=== PATIENT | female | born 1980 | race Caucasian/White ===

== ENCOUNTER 2023-10-02 14:01 | Emergency (ER) | payer OTHER, MEDICARE, SELFPAY ==
[2023-10-02 14:09] VITALS: BP 92/64
--- NOTE | 2023-10-02 15:26 | EDRN ---
Rod IVY in room w/pt. Pt had COVID and Flu tests done at this time.
--- NOTE | 2023-10-02 15:35 | ED.GENMED ---
History of Present Illness
General
Chief Complaint: Cold/Flu/URI Symptoms
Time Seen by Provider: 10/02/23 15:05
Travel History
Have you had any contact with someone who has COVID-19?: No
Do you have any symptoms of coronavirus? Fever > 100 degrees, chills, cough, shortness of breath, sore throat, loss of taste or smell, muscle aches, or headache?: No
History of Present Illness
History of Present Illness:
43-year-old female with history of tobacco abuse presents to the emergency for evaluation of persistent cough shortness of breath for the past week. States it began after working on completing a anti-inflammatory and pain exposed to several family
members with flulike symptoms. She does note blood-tinged mucus over the past 2 to 3 days. No associated fever but does have chills. No chest pain or leg swelling. Tolerated daughter did have similar symptoms earlier this week but seems to have
improved
Past History
Past History
ED Past Medical History: Asthma, Seizures and Psychiatric (Bipolar Disorder PTSD)
ED Past Surgical History: None
Patient has exhibited threatening behavior?: No
Social History
Tobacco: Smoker
Alcohol: Occasional
Drug: None
Personal: Single
Living: with family
Review of Systems
Review of Systems
Allergies reviewed?: Yes
All Other Systems: ROS reviewed and negative except as documented in HPI and ROS
Phy Exam
Physical Exam
Physical Exam:
GEN: Well appearing, NAD, WDWN
Eyes: PERRLA, EOMs intact, no scleral icterus
HENT: NCAT, oral mucosa moist
Lungs: CTAB, no wheezes, rales, rhonchi, normal chest wall excursion
Cardiac: RRR
Abdomen: S, NT, ND, NABS, no masses or hepatosplenomegaly
Neuro: AO x 3, no focal deficits to BUE/BLE, normal sensation throughout
MSK: No gross deformity or ecchymosis.
Skin: No rashes, petechiae. Normal color, no pallor or jaundice.
Psych: Calm, cooperative, proper hygiene
Course
Orders/Labs/Results
Orders:
Orders
10/02/23 15:24
COVID-19 Antigen Urgent
Source: Nasal Swab
Influenza A+B Rapid Molecular Urgent
MARCIN Source: Nasal Swab
Specimen Description:
10/02/23 15:29
CR Chest - 2 Views Urgent
Comment:
Reason For Exam: cough/hemoptysis
Vital Signs
Initial and Last Documented VS:
Initial Vital Signs
Temp Pulse Resp BP Pulse Ox
98.1 F 70 18 92/64 98
10/02/23 14:09 10/02/23 14:09 10/02/23 14:09 10/02/23 14:09 10/02/23 14:09
Last Documented Vital Signs
Temp Pulse Resp BP Pulse Ox
98.1 F 66 16 100/87 96
10/02/23 14:09 10/02/23 15:38 10/02/23 15:38 10/02/23 15:38 10/02/23 15:38
MDM/Problems Addressed
MDM/Problems Addressed:
Patient's physical exam is benign. Chest x-ray was obtained to evaluate for infiltrate given her blood-tinged sputum, this was grossly unremarkable. COVID and flu test were negative. Self-limited viral syndrome, supportive care discussed
*Critical Care Note
Total Time (30-74mins, 75-104mins- exclusive of procedures): Not Applicable
ED Attending Note
-
Portions of this chart may have been created with voice recognition software.� Occasional wrong word or��sound alike� substitutions may have occurred due to the inherent limitations of voice recognition software.
Discharge Plan
Departure
Patient Disposition: Home (Routine Discharge)
Date of Disposition: 10/02/23
Time of Disposition: 16:23
Patient with high blood pressure during this ER visit?: No
Discharge Problem:
Acute bronchitis
Instructions: Acute Bronchitis, Adult (DC)
Prescriptions:
New
albuterol sulfate [ProAir HFA] 90 mcg/actuation HFA aerosol inhaler
1 puff inhalation Q4HPRN PRN (Reason: shortness of breath) Qty: 6.7 0RF
No Action
Proair Digihaler 90 mcg/actuation aero powdr breath act w/sensor
1 inh inhalation Q4H Qty: 1 0RF
prednisone 20 mg tablet
40 mg PO DAILY Qty: 8 0RF
albuterol sulfate 2.5 mg /3 mL (0.083 %) solution for nebulization
2.5 mg inhalation Q4H Qty: 75 0RF
Referrals:
UNKNOWN - PT DOES,NOT KNOW [Family Provider] -
Interventions
Interventions:
*Risk Screen - Suicide Last Done: 10/02/23 15:32
*General Assessment Last Done: 10/02/23 15:32
*Neglect/Abuse Screening Last Done: 10/02/23 15:32
ED- Fall Risk Assessment Last Done: 10/02/23 15:32
*ED COVID-19 Vaccine History Last Done: 10/02/23 15:32
*Nursing Disposition Last Done: 10/02/23 16:15
ED- Pulmonary Assessment Last Done: 10/02/23 15:40
Discharge Date and Time
Discharge Date/Time: 10/02/23 16:15
[2023-10-02 15:38] VITALS: BP 100/87
[2023-10-02 16:34] LABS: COVID-19 Antigen Negative (Negative)
== END 2023-10-02 16:15 | disposition home or self-care (01) ==
LOC: EMR 14:01
PROVIDERS: Physician Assistant; EMERGENCY PHYSICIAN Emergency Medicine
DX: J20.9 Acute bronchitis, unspecified (principal); Z11.52 Encounter for screening for COVID-19; F31.9 Bipolar disorder, unspecified; J45.909 Unspecified asthma, uncomplicated; F43.10 Post-traumatic stress disorder, unspecified; R56.9 Unspecified convulsions; Z88.6 Allergy status to analgesic agent; Z88.8 Allergy status to other drugs, medicaments and biological substances
CPT/HCPCS: 99283; 71046; 87502; 87811

== ENCOUNTER 2023-11-21 17:05 | Emergency (ER) | payer OTHER, MEDICARE, SELFPAY ==
[2023-11-21 17:07] VITALS: BP 116/81; BMI 17.7
[2023-11-21 17:29] LABS: % Basophils 0.3 % (0-2); % Immature Granulocytes 0.3 % (0-0.5); % Lymphocytes 18.6 % (20.5-51.1); % Monocytes 9.1 % (1.7-9.3); % Neutrophils 71.7 % (42.2-75.2); Absolute Lymphocytes 2.2 10^3/uL (1.2-3.4); Absolute Monocytes 1.1 10^3/uL (0.1-0.6); Absolute Neutrophils 8.5 10^3/uL (1.4-6.5); Hematocrit 38.3 % (37.0-47.0); Hemoglobin 13.4 g/dL (12.0-16.0); Mean Corpuscular Hgb 31.6 pg (27.0-31.0); Mean Corpuscular Volume 90.3 fL (81.0-99.0); Mean Platelet Volume 9.9 fL (7.4-10.4); Nucleated Red Blood Cells % 0 %; Platelet Count 213 10^3/uL (130-400); Red Blood Cell Count 4.24 10^6/uL (4.20-5.40); Red Cell Dist. Width 14.1 % (11.5-14.5); White Blood Cell Count 11.8 10^3/uL (4.8-10.8)
[2023-11-21 17:39] LABS: ALT (SGPT) 18 U/L (0-35); AST (SGOT) 24 U/L (14-36); Albumin 4.1 g/dl (3.5-5.0); Alkaline Phosphatase 113 U/L (38-126); Blood Urea Nitrogen 19 mg/dl (7-17); Calcium 8.7 mg/dl (8.4-10.2); Carbon Dioxide 25 mmol/L (22-30); Chloride 104 mmol/L (98-107); Estimated Creatinine Clearance 64 ml/min; Glucose 95 mg/dl (70-99); Sodium 135 mmol/L (135-145); Total Bilirubin 0.4 mg/dl (0.2-1.3); Total Protein 7.1 g/dl (6.3-8.2); eGFR > 60.00
[2023-11-21 17:50] LABS: Troponin I < 0.012 ng/ml
--- NOTE | 2023-11-21 20:00 | ED.GENMED ---
History of Present Illness
General
Chief Complaint: Chest Pain
Source: patient
Exam Limitations: none
Time Seen by Provider: 11/21/23 19:41
Travel History
Have you had any contact with someone who has COVID-19?: No
Do you have any symptoms of coronavirus? Fever > 100 degrees, chills, cough, shortness of breath, sore throat, loss of taste or smell, muscle aches, or headache?: No
History of Present Illness
History of Present Illness:
This is a 43 year old female that comes in with c/o right sided chest pain. States that she was outside with her kids and they were playing. State that all of a sudden she started with this sharp right sided chest pain, that went into her back and
down her arm. States that she took 2 Aleve and went to . States that she was sent for further evaluation. States that they called the ambulance and she was given 2 baby aspirin. States that she also became sweaty. States that she felt SOB with the
pain. Patient states that the pain is better now. Denies any fever, chills, abd pain, nausea, vomiting, diarrhea, headache, dizziness, urinary burning.
Past History
Past History
ED Past Medical History: Asthma, Seizures, Psychiatric (Bipolar Disorder, PTSD) and Other (endometriosis, )
ED Past Surgical History: ( X 3) and Gynecological (Tubal)
Patient has exhibited threatening behavior?: No
Social History
Tobacco: Smoker
Alcohol: None
Drug: None and Marijuana
Personal:
Living: with family
Review of Systems
Review of Systems
All Other Systems: ROS reviewed and negative except as documented in HPI and ROS
Constitutional: Reports no symptoms; Denies fever or chills
EENT: Reports no symptoms
Respiratory: Reports trouble breathing; Denies cough
Cardiac: Reports chest pain
ABD/GI: Reports no symptoms; Denies abdominal pain, nausea, vomiting or diarrhea
: Reports no symptoms; Denies dysuria, frequency or urgency
Musculoskeletal: Reports no symptoms
Skin: Reports no symptoms
Neurological: Reports no symptoms; Denies dizzy or headache
Psychiatric: Reports no symptoms
Phy Exam
General Physical Exam
General Presentation: well appearing and no apparent distress
General age: appears stated age
General Skin: warm and dry
General Habitus: normal
General Mental: alert
General Hydration: appears well hydrated
ENT Exam
ENT Exam: TM's normal, pharynx normal and neck supple
Eye Exam
Eye Exam: EOMI
Cardiovascular Exam
Cardiovascular Exam: regular rate/rhythm, no edema, no murmur and normal peripheral pulses
Pulmonary Exam
Pulmonary Exam: lungs clear, no respiratory distress, no rales, chest non tender, no crackles, no rhonchi, no wheezing and no cough
Gastrointestinal Exam
Gastrointestinal Exam: normal bowel sounds, non tender, soft, no organomegaly, no pulsatile mass and non distended
Musculoskeletal Exam
Musculoskeletal Exam: full ROM and no edema
Skin Exam
Skin Exam: normal color, warm/dry, no rash and no petechia
Psychiatric Exam
Psychiatric Exam: normal mood/affect
Scores
Heart Score for Chest Pain Patients
STEMI patient?: No
History: Slightly or Non-Suspicious
ECG: Normal
Age: </= 45 years
Risk Factors: 1 or 2 Risk Factors
Troponin: </= Normal Limit
Heart Score for Chest Pain Patients: 1
Heart Score Risk: 2.5% MACE over next 6 weeks
Course
Orders/Labs/Results
Orders:
Orders
11/21/23 17:06
EKG [Electrocardiogram (*1)] Urgent
Reason for Study: Chest Pain
11/21/23 17:07
EKG- Treatment ONCE
11/21/23 17:19
Complete Blood Count/With Diff Urgent
Comprehensive Metabolic Panel Urgent
Troponin I Urgent
11/21/23 19:53
EKG- Treatment ONCE
11/21/23 20:01
CR Chest - 2 Views Urgent
Comment:
Reason For Exam: chest pain
11/21/23 20:20
Electrocardiogram (*1) Urgent
Reason for Study: Chest Pain
Other Reason for Exam: Repeat with Troponin
11/21/23 20:30
D-Dimer Urgent
Troponin I Urgent
Abnormal Lab Results
11/21/23
17:19
WBC 11.8 H 10^3/uL
(4.8-10.8)
MCH 31.6 H pg
(27.0-31.0)
Absolute Neuts (auto) 8.5 H 10^3/uL
(1.4-6.5)
Absolute Monos (auto) 1.1 H 10^3/uL
(0.1-0.6)
Lymphocytes % 18.6 L %
(20.5-51.1)
BUN 19 H mg/dl
(7-17)
11/21/23 17:19
11/21/23 17:19
WBC very slightly elevated. Dehydration. Troponin <0.012
D-dimer 0.31, Second Tropnin <0.012
Vital Signs
Initial and Last Documented VS:
Initial Vital Signs
Temp Pulse Resp BP Pulse Ox
98.5 F 73 16 116/81 99
11/21/23 17:07 11/21/23 17:07 11/21/23 17:07 11/21/23 17:07 11/21/23 17:07
Last Documented Vital Signs
Temp Pulse Resp BP Pulse Ox
98.5 F 60 20 116/81 98
11/21/23 17:07 11/21/23 21:15 11/21/23 21:15 11/21/23 17:07 11/21/23 21:15
MDM/Problems Addressed
Differential Diagnosis Includes:
Musculoskeletal pain. Coronary artery syndrme
MDM/Problems Addressed:
This is a 43 year old female that comes in with c/o right sided chest pain that went into her back and down her arm. State that she took Aleve an went to . Patient was sent to the ER for further evaluation.
Will check labs. Get Chest x-ray.
Repeat EG: rate 55, Sinus Bradycardia, Normal axis. Normal QRS, Negative for ischemia. Checked by Dr. Zepeda
Back into see patient. Explained that her ECG and both Troponin are normal. Chest x-ray is normal along with her D-dimer. Explained that this may just be musculoskeletal pain. Patient can use Ibuprofen for pain. Follow up with the family doctor for
recheck. Return with any concerns.
Chronic conditions affecting care:
Na
Acute Exacerbation and/or Progression of Chronic Illness:
NA
*Radiology
Radiology exam reviewed: radiology read reviewed (Chest- Unremarkable. Exam)
*Pulse Oximetry
Patient hypoxic: no
*EKG
Interpreted by ED Provider?: Yes
Interpretation: normal
Heart Rate: 65
Rate: normal
Rhythm: sinus
[place]: normal axis
Interval: normal interval
QRS Pattern: normal QRS
Ischemia: no ischemia
*Mileage Clerk Interpretation
Rate: normal
Heart Rate: 60
Rhythm: sinus
*Critical Care Note
Total Time (30-74mins, 75-104mins- exclusive of procedures): Not Applicable
ED Attending Note
-
Portions of this chart may have been created with voice recognition software.� Occasional wrong word or��sound alike� substitutions may have occurred due to the inherent limitations of voice recognition software.
Discharge Plan
Departure
Patient Disposition: Home (Routine Discharge)
Date of Disposition: 11/21/23
Time of Disposition: 21:57
Patient with high blood pressure during this ER visit?: No
Condition: Good
Covid-19: Not Applicable
Discharge Problem:
Musculoskeletal pain
Instructions: Musculoskeletal Pain
Prescriptions:
No Action
Proair Digihaler 90 mcg/actuation aero powdr breath act w/sensor
1 inh inhalation Q4H Qty: 1 0RF
prednisone 20 mg tablet
40 mg PO DAILY Qty: 8 0RF
albuterol sulfate 2.5 mg /3 mL (0.083 %) solution for nebulization
2.5 mg inhalation Q4H Qty: 75 0RF
albuterol sulfate [ProAir HFA] 90 mcg/actuation HFA aerosol inhaler
1 puff inhalation Q4HPRN PRN (Reason: shortness of breath) Qty: 6.7 0RF
Referrals:
Colleen Blanco CRNP [Family Provider] - Follow up in 2-3 days
Activity Restrictions/Additional Instructions:
As discussed, your blood work shows very slight Dehydration. Both Troponin which are specific for your heart are negative. Your chest x-ray is normal. Please increase your water intake to 8-8oz glasses. Follow up with the family doctor for recheck.
You may use Tylenol or Ibuprofen for pain. IF YOU HAVE INCREASED OR CHANGING PAIN, OR YOU HAVE ANY OTHER CONCERNS PLEASE RETURN TO THE EMERGENCY ROOM.
Interventions
Interventions:
*Risk Screen - Suicide Last Done: 11/21/23 17:07
*ED COVID-19 Vaccine History Last Done: 11/21/23 17:07
ED- Cardiac Assessment Last Done: 11/21/23 21:24
Discharge Date and Time
Print Language: [place]
[2023-11-21 21:01] LABS: D-Dimer 0.31 ug/mlFEU (0.00-0.50)
[2023-11-21 21:13] LABS: Troponin I < 0.012 ng/ml
== END 2023-11-21 22:12 | disposition home or self-care (01) ==
LOC: EMR 17:05
PROVIDERS: Clinical Nurse Specialist Family Health; Emergency Medicine; EMERGENCY PHYSICIAN Emergency Medicine; FAMILY PHYSICIAN Nurse Practitioner Family
DX: M79.18 Myalgia, other site (principal); E86.0 Dehydration; J45.909 Unspecified asthma, uncomplicated; G40.909 Epilepsy, unspecified, not intractable, without status epilepticus; F31.9 Bipolar disorder, unspecified; F43.10 Post-traumatic stress disorder, unspecified; F17.200 Nicotine dependence, unspecified, uncomplicated
CPT/HCPCS: 99283; 71046; 80053; 84484; 85025; 85379; 93005

== ENCOUNTER 2024-05-04 19:37 | Emergency (ER) | payer OTHER, MEDICARE, SELFPAY ==
[2024-05-04 19:41] VITALS: BP 105/73
[2024-05-04 19:49] VITALS: BP 105/73
[2024-05-04 20:02] VITALS: BP 93/65
--- NOTE | 2024-05-04 20:13 | ED.GENMED ---
History of Present Illness
General
Chief Complaint: Alcohol Problem
Time Seen by Provider: 05/04/24 19:51
History of Present Illness
History of Present Illness:
44-year-old female with history of asthma presenting to the emergency department for suspected alcohol intoxication. Patient found in friend's vehicle vomiting. Patient admits to drinking vodka prior to arrival. Limited historian given acute
intoxication. No additional history or symptoms reported at this time
Past History
Past History
ED Past Medical History: Asthma, Seizures, Psychiatric (Bipolar Disorder, PTSD) and Other (endometriosis, )
ED Past Surgical History: ( X 3) and Gynecological (Tubal)
Patient has exhibited threatening behavior?: No
Social History
Tobacco: Smoker
Alcohol: None
Drug: None and Marijuana
Personal:
Living: with family
Phy Exam
Physical Exam
Physical Exam:
General: Well-appearing, no clinical signs of dehydration, nontoxic and in no acute distress. No signs of trauma
HEENT: protecting airway, pupils equal and reactive bilaterally
Neck: appears supple
CV: Normal heart rate, regular rhythm
Resp: No accessory muscle use, no increased work of breathing, lungs clear to auscultation bilaterally
Abd: Soft and non-distended, no tenderness to palpation
Extremities: No deformities, no swelling, no erythema
Neuro: alert, no focal neurologic deficit
: deferred
Rectal: deferred
Psych: Normal affect
Skin: Intact
Scores
Withdrawal Assessment of Alcohol
Withdrawal Assessment Completed?: Not applicable
Course
Orders/Labs/Results
Orders:
Orders
05/04/24 19:55
Test Result ONCE
05/04/24 19:58
Alcohol Urgent
Complete Blood Count/With Diff Urgent
Comprehensive Metabolic Panel Urgent
HCG, Serum Qualitative Screen Urgent
05/04/24 20:13
0.9% Sodium Chloride 1000 ml [Nss] 1,000 ml IV BOLUS
Abnormal Lab Results
05/04/24
19:58
RBC 4.03 L 10^6/uL
(4.20-5.40)
Hct 36.2 L %
(37.0-47.0)
MCH 31.8 H pg
(27.0-31.0)
RDW 15.3 H %
(11.5-14.5)
Absolute Lymphs (auto) 4.6 H 10^3/uL
(1.2-3.4)
Absolute Monos (auto) 1.0 H 10^3/uL
(0.1-0.6)
Neutrophils % 41.6 L %
(42.2-75.2)
Monocytes % 9.6 H %
(1.7-9.3)
Glucose 107 H mg/dl
(70-99)
05/04/24 19:58
05/04/24 19:58
Vital Signs
Initial and Last Documented VS:
Initial Vital Signs
Pulse Resp BP
70 20 105/73
05/04/24 19:41 05/04/24 19:41 05/04/24 19:41
Last Documented Vital Signs
Temp Pulse Resp BP Pulse Ox
97 F 62 16 96/65 96
05/04/24 19:49 05/05/24 00:30 05/05/24 00:30 05/04/24 23:03 05/04/24 21:00
MDM/Problems Addressed
MDM/Problems Addressed:
44-year-old female with history of asthma presents for suspected alcohol station. Vital signs on arrival significant for mildly low blood pressure.
On exam, patient well-appearing, no acute distress, however limited historian, suspect intoxication. No signs of acute trauma. No active emesis. Will continue to monitor and screen with laboratory analysis.
01:10 -patient with elevated alcohol level. Patient has been sleeping comfortably for several hours, has since woken up, ambulated without difficulty today. Feel stable for discharge. Return precautions discussed
*Critical Care Note
Total Time (30-74mins, 75-104mins- exclusive of procedures): Not Applicable
ED Attending Note
-
Portions of this chart may have been created with voice recognition software.� Occasional wrong word or��sound alike� substitutions may have occurred due to the inherent limitations of voice recognition software.
Discharge Plan
Departure
Patient Disposition: Home (Routine Discharge)
Date of Disposition: 05/05/24
Time of Disposition: 01:14
Patient with high blood pressure during this ER visit?: No
Condition: Good
Discharge Problem:
Alcohol intoxication
Instructions: Alcohol Intoxication ED
Prescriptions:
No Action
Proair Digihaler 90 mcg/actuation aero powdr breath act w/sensor
1 inh inhalation Q4H Qty: 1 0RF
prednisone 20 mg tablet
40 mg PO DAILY Qty: 8 0RF
albuterol sulfate 2.5 mg /3 mL (0.083 %) solution for nebulization
2.5 mg inhalation Q4H Qty: 75 0RF
albuterol sulfate [ProAir HFA] 90 mcg/actuation HFA aerosol inhaler
1 puff inhalation Q4HPRN PRN (Reason: shortness of breath) Qty: 6.7 0RF
Referrals:
UNKNOWN - PT NOT,INTERVIEWE [Family Provider] -
Activity Restrictions/Additional Instructions:
You were seen in the emergency department for alcohol intoxication
Please follow-up closely with your primary care physician.
Return to the emergency department for any worsening of your symptoms, or any development of chest pain, difficulty breathing, abdominal pain with persistent vomiting and inability to tolerate food or liquid by mouth (concern for dehydration),
weakness, headache or confusion, fever greater than 100.4, or any additional symptoms that are concerning to you.
Thank you for choosing [facility].
Interventions
Interventions:
*Risk Screen - Suicide Last Done: 05/05/24 01:20
*General Assessment Last Done: 05/04/24 19:49
*Neglect/Abuse Screening Last Done: 05/04/24 19:49
ED- Fall Risk Assessment Last Done: 05/05/24 01:20
*ED COVID-19 Vaccine History Last Done: 05/04/24 19:49
*Nursing Disposition Last Done: 05/05/24 01:20
ED- Neurological Assessment Last Done: 05/04/24 21:13
ED-Psychological Assessment Last Done: 05/04/24 21:13
Discharge Date and Time
Discharge Date/Time: 05/05/24 01:24
Print Language: [place]
[2024-05-04 20:17] LABS: HCG, Serum Qualitative Screen Negative
[2024-05-04] MEDS: NSS 1000 IV (20:17)
[2024-05-04 20:20] LABS: ALT (SGPT) 16 U/L (0-35); AST (SGOT) 25 U/L (14-36); Albumin 4.1 g/dl (3.5-5.0); Alcohol 195 mg/dl; Alkaline Phosphatase 91 U/L (38-126); Blood Urea Nitrogen 16 mg/dl (7-17); Calcium 8.7 mg/dl (8.4-10.2); Carbon Dioxide 26 mmol/L (22-30); Chloride 104 mmol/L (98-107); Glucose 107 mg/dl (70-99); Potassium 3.8 mmol/L (3.5-5.1); Sodium 142 mmol/L (135-145); Total Bilirubin 0.4 mg/dl (0.2-1.3); Total Protein 6.6 g/dl (6.3-8.2); eGFR > 60.00
[2024-05-04 20:27] LABS: Hematocrit 36.2 % (37.0-47.0); Hemoglobin 12.8 g/dL (12.0-16.0); Mean Corp Hgb Conc. 35.4 g/dL (33.0-37.0); Mean Corpuscular Hgb 31.8 pg (27.0-31.0); Mean Corpuscular Volume 89.8 fL (81.0-99.0); Mean Platelet Volume 10.2 fL (7.4-10.4); Platelet Count 259 10^3/uL (130-400); Red Blood Cell Count 4.03 10^6/uL (4.20-5.40); Red Cell Dist. Width 15.3 % (11.5-14.5)
[2024-05-04 20:41] LABS: % Basophils 0.4 % (0-2); % Eosinophils 1.9 % (0-6); % Immature Granulocytes 0.3 % (0-0.5); % Lymphocytes 46.2 % (20.5-51.1); % Monocytes 9.6 % (1.7-9.3); % Neutrophils 41.6 % (42.2-75.2); Absolute Eosinophils 0.2 10^3/uL (0-0.7); Absolute Lymphocytes 4.6 10^3/uL (1.2-3.4); Absolute Neutrophils 4.2 10^3/uL (1.4-6.5); Nucleated Red Blood Cells % 0 %
[2024-05-04 21:00] VITALS: BP 92/55
[2024-05-04 22:00] VITALS: BP 92/67
[2024-05-04 23:03] VITALS: BP 96/65
== END 2024-05-05 01:24 | disposition home or self-care (01) ==
LOC: EMR 19:37
PROVIDERS: EMERGENCY PHYSICIAN Student in an Organized Health Care Education/Training Program
DX: F10.129 Alcohol abuse with intoxication, unspecified (principal); R11.10 Vomiting, unspecified; J45.909 Unspecified asthma, uncomplicated; F31.9 Bipolar disorder, unspecified; F43.10 Post-traumatic stress disorder, unspecified; R56.9 Unspecified convulsions; F17.200 Nicotine dependence, unspecified, uncomplicated; Z88.6 Allergy status to analgesic agent; Z88.8 Allergy status to other drugs, medicaments and biological substances
CPT/HCPCS: 99284; 96360; 80053; 82077; 84703; 85025

== ENCOUNTER 2024-10-21 21:43 | Emergency (ER) | payer OTHER, MEDICARE, SELFPAY ==
[2024-10-21 21:46] VITALS: BP 135/76
--- NOTE | 2024-10-21 22:35 | ED.GENMED ---
History of Present Illness
General
Chief Complaint: Throat Problem
Source: patient
Time Seen by Provider: 10/21/24 22:26
History of Present Illness
History of Present Illness:
44-year-old female presents to the emergency room complaining of lumps in her throat and pain with swallowing. Patient states the symptoms have been present for 2 years but worse over the past couple days. Patient denies any fever, chills. She
feels there is a discoloration of her throat. Patient is swallowing her secretions without difficulty. She does endorse smoking.
Past History
Past History
ED Past Medical History: Asthma, Seizures, Psychiatric (Bipolar Disorder, PTSD) and Other (endometriosis, )
ED Past Surgical History: ( X 3) and Gynecological (Tubal)
Patient has exhibited threatening behavior?: No
Social History
Tobacco: Smoker
Alcohol: None
Drug: None and Marijuana
Personal:
Living: with family
Phy Exam
Physical Exam
Physical Exam:
General: Awake, Alert, Oriented X3. No acute distress.
Vitals: unremarkable
Head: Atraumatic
Eyes: Pupils equal, EOMI
Throat: Airway intact, no exudates
Neck: Trachea midline, no adenopathy
Lungs: Clear and equal b/l
Heart: Regular rate, no murmurs
Abd: Soft, Nontender, No pulsatile mass
Neuro: Nonfocal
Skin: Warm, dry, no rash
Extremities: pulses equal b/l, no edema
Course
Vital Signs
Initial and Last Documented VS:
Initial Vital Signs
Temp Pulse Resp BP Pulse Ox
97.7 F 87 16 135/76 99
10/21/24 21:46 10/21/24 21:46 10/21/24 21:46 10/21/24 21:46 10/21/24 21:46
Last Documented Vital Signs
Temp Pulse Resp BP Pulse Ox
97.7 F 87 16 135/76 99
10/21/24 21:46 10/21/24 21:46 10/21/24 21:46 10/21/24 21:46 10/21/24 21:46
MDM/Problems Addressed
MDM/Problems Addressed:
Patient presents concerned that she has discolored lumps that she can feel in her throat. I do not detect any abnormal issues on visualization of the oropharynx. I do not palpate any abnormalities on exam of her throat. I was preparing to obtain
a strep culture as well as COVID and flu test but the patient states that she had these at an urgent care and they were negative. She wants other testing done here. I explained there is no further testing necessary here in the emergency room as I
do not identify anything that suggest she has an unstable process. If her symptoms continue she may require imaging that can be performed as an outpatient. Patient became angry and voiced some offensive comments. Patient left without discharge
instructions.
*Pulse Oximetry
Patient hypoxic: no
*Critical Care Note
Total Time (30-74mins, 75-104mins- exclusive of procedures): Not Applicable
ED Attending Note
-
Portions of this chart may have been created with voice recognition software.� Occasional wrong word or��sound alike� substitutions may have occurred due to the inherent limitations of voice recognition software.
Discharge Plan
Departure
Patient Disposition: Home (Routine Discharge)
Date of Disposition: 10/21/24
Time of Disposition: 22:45
Patient with high blood pressure during this ER visit?: No
Condition: Good
Discharge Problem:
Sore throat
Instructions: Sore Throat, Adult (DC)
Prescriptions:
No Action
Proair Digihaler 90 mcg/actuation aero powdr breath act w/sensor
1 inh inhalation Q4H Qty: 1 0RF
prednisone 20 mg tablet
40 mg PO DAILY Qty: 8 0RF
albuterol sulfate 2.5 mg /3 mL (0.083 %) solution for nebulization
2.5 mg inhalation Q4H Qty: 75 0RF
albuterol sulfate [ProAir HFA] 90 mcg/actuation HFA aerosol inhaler
1 puff inhalation Q4HPRN PRN (Reason: shortness of breath) Qty: 6.7 0RF
Interventions
Interventions:
*Risk Screen - Suicide Last Done: 10/21/24 21:46
*Neglect/Abuse Screening Last Done: 10/21/24 21:46
Discharge Date and Time
Print Language: [place]
== END 2024-10-21 22:47 | disposition home or self-care (01) ==
LOC: EMR 21:43
PROVIDERS: EMERGENCY PHYSICIAN Emergency Medicine; FAMILY PHYSICIAN Nurse Practitioner Family
DX: J02.9 Acute pharyngitis, unspecified (principal); J45.909 Unspecified asthma, uncomplicated; F31.9 Bipolar disorder, unspecified; R56.9 Unspecified convulsions; F43.10 Post-traumatic stress disorder, unspecified; F17.200 Nicotine dependence, unspecified, uncomplicated; Z88.6 Allergy status to analgesic agent; Z88.8 Allergy status to other drugs, medicaments and biological substances
CPT/HCPCS: 99281

== ENCOUNTER 2024-11-16 10:59 | Emergency (ER) | payer OTHER, MEDICARE, SELFPAY ==
[2024-11-16 11:01] VITALS: BP 99/65; BMI 17.8
[2024-11-16 11:19] LABS: % Basophils 0.4 % (0-2); % Eosinophils 2.2 % (0-6); % Immature Granulocytes 0.1 % (0-0.5); % Lymphocytes 26.5 % (20.5-51.1); % Monocytes 13.1 % (1.7-9.3); % Neutrophils 57.7 % (42.2-75.2); Absolute Eosinophils 0.2 10^3/uL (0-0.7); Absolute Lymphocytes 2.2 10^3/uL (1.2-3.4); Absolute Monocytes 1.1 10^3/uL (0.1-0.6); Absolute Neutrophils 4.7 10^3/uL (1.4-6.5); Hematocrit 40.8 % (37.0-47.0); Hemoglobin 14.3 g/dL (12.0-16.0); Mean Corpuscular Hgb 31.8 pg (27.0-31.0); Mean Corpuscular Volume 90.7 fL (81.0-99.0); Mean Platelet Volume 9.7 fL (7.4-10.4); Nucleated Red Blood Cells % 0 %; Platelet Count 203 10^3/uL (130-400); Red Cell Dist. Width 14.1 % (11.5-14.5); White Blood Cell Count 8.1 10^3/uL (4.8-10.8)
[2024-11-16 11:35] LABS: Lactic Acid 1.5 mmol/L (0.7-2.0)
[2024-11-16 11:58] LABS: Alcohol None Detected
[2024-11-16 12:47] LABS: ALT (SGPT) 21 U/L (0-35); AST (SGOT) 24 U/L (14-36); Albumin 3.7 g/dl (3.5-5.0); Alkaline Phosphatase 84 U/L (38-126); Blood Urea Nitrogen 21 mg/dl (7-17); Calcium 9.5 mg/dl (8.4-10.2); Carbon Dioxide 30 mmol/L (22-30); Chloride 105 mmol/L (98-107); Creatine Phosphokinase 122 U/L (30-135); Estimated Creatinine Clearance 70 ml/min; Glucose 97 mg/dl (70-99); Lipase 54 U/L (23-300); Potassium 4.1 mmol/L (3.5-5.1); Sodium 140 mmol/L (135-145); Total Bilirubin 0.6 mg/dl (0.2-1.3); Total Protein 6.3 g/dl (6.3-8.2); eGFR > 60.00
[2024-11-16 14:00] VITALS: BP 112/74
[2024-11-16 15:01] LABS: Urine Albumin 2+ (Neg - Trace); Urine Bilirubin Negative (Negative); Urine Character Clear (Clear); Urine Color Yellow; Urine Glucose Negative (Negative); Urine Ketone Negative (Negative); Urine Leukocyte Negative (Negative); Urine Nitrite Negative (Negative); Urine Occult Blood Negative (Negative); Urine Specific Gravity 1.025 (<1.030); Urine Urobilinogen Negative (Neg - 1+)
--- NOTE | 2024-11-16 15:08 | ED.GENMED ---
History of Present Illness
General
Chief Complaint: Seizure
Time Seen by Provider: 11/16/24 11:15
History of Present Illness
History of Present Illness:
44-year-old female with history of epilepsy presents to the emergency department from EMS due to a witnessed seizure that occurred while at work. On arrival the patient is obtunded as she received 8 mg of IV midazolam prehospital. She is
responsive only to painful stimuli with garbled speech.
Past History
Past History
ED Past Medical History: Asthma, Seizures, Psychiatric (Bipolar Disorder, PTSD) and Other (endometriosis, )
ED Past Surgical History: ( X 3) and Gynecological (Tubal)
Patient has exhibited threatening behavior?: No
Social History
Tobacco: Smoker
Alcohol: None
Drug: None and Marijuana
Personal:
Living: with family
Review of Systems
Review of Systems
Allergies reviewed?: Yes
All Other Systems: ROS reviewed and negative except as documented in HPI and ROS
Phy Exam
Physical Exam
Physical Exam:
GEN: Obtunded, garbled speech, maintaining airway
HEENT: Oral mucosa moist, no scleral icterus
Cardiac: Regular rate
Lung: No respiratory distress, no tachypnea
MSK: No gross deformity or injuries
Skin: Good color, no pallor or jaundice, no rashes
Neuro: GCS of 5
Psych: Calm, cooperative
Course
Orders/Labs/Results
Orders:
Orders
11/16/24 11:02
Electrocardiogram (*1) Urgent
Reason for Study: Other
Other Reason for Exam: seizure
EKG- Treatment ONCE
11/16/24 11:12
Alcohol Urgent
Complete Blood Count/With Diff Urgent
Lactate Level [Lactic Acid] Urgent
11/16/24 12:14
Comprehensive Metabolic Panel Urgent
Creatine Phosphokinase Urgent
Lipase Urgent
11/16/24 12:46
CT Head W/o Iv Contrast Urgent
Comment:
Reason For Exam: seizure, not returning to baseline
11/16/24 14:52
Drug Screen, Urine [Urine Drug Abuse Screen] Urgent
Date Specimen was Collected: 11/16/24
Time Specimen was Collected: 14:50
Fentanyl, Urine Urgent
Urinalysis Reflex To Culture Urgent
Date Specimen was Collected: 11/16/24
Time Specimen was Collected: 14:50
Urine Microscopic Reflex Cult Urgent
Abnormal Lab Results
11/16/24 11/16/24 11/16/24
11:12 12:14 14:52
MCH 31.8 H pg
(27.0-31.0)
Absolute Monos (auto) 1.1 H 10^3/uL
(0.1-0.6)
Monocytes % 13.1 H %
(1.7-9.3)
BUN 21 H mg/dl
(7-17)
Urine Albumin (Reflex) 2+ A
(Neg - Trace)
Ur Amphetamines Screen Positive H
(Negative)
U Methamphetamines Scrn Positive H
(Negative)
U Marijuana (THC) Screen Positive H
(Negative)
11/16/24 11:12
11/16/24 12:14
Vital Signs
Initial and Last Documented VS:
Initial Vital Signs
Temp Pulse Resp BP Pulse Ox
98.3 F 66 16 99/65 99
11/16/24 11:01 11/16/24 11:01 11/16/24 11:01 11/16/24 11:01 11/16/24 11:01
Last Documented Vital Signs
Temp Pulse Resp BP Pulse Ox
98.3 F 61 17 112/74 99
11/16/24 11:01 11/16/24 14:00 11/16/24 14:00 11/16/24 14:00 11/16/24 14:00
MDM/Problems Addressed
MDM/Problems Addressed:
Patient remains obtunded for quite a long lengthy period of time most likely due to excessive dose of benzodiazepines thus head CT was obtained showing no evidence for intracranial hemorrhage. Upon waking up I discussed the patient's history of
epilepsy, she apparently used to take levetiracetam but stopped when she began using medical marijuana, admits to decreased marijuana use secondary to work requirements recently. This is most likely the cause of her breakthrough seizure. She is
amenable to restarting her levetiracetam, will restart this at a baseline dose of 500 twice daily and have her follow-up with her PCP for further discussion. Discharged in stable condition
*Critical Care Note
Total Time (30-74mins, 75-104mins- exclusive of procedures): Not Applicable
ED Attending Note
-
Portions of this chart may have been created with voice recognition software.� Occasional wrong word or��sound alike� substitutions may have occurred due to the inherent limitations of voice recognition software.
Discharge Plan
Departure
Patient Disposition: Home (Routine Discharge)
Date of Disposition: 11/16/24
Time of Disposition: 15:19
Patient with high blood pressure during this ER visit?: No
Discharge Problem:
Breakthrough seizure
Instructions: Seizures
Prescriptions:
New
levetiracetam 500 mg tablet
500 mg PO BID Qty: 60 0RF
No Action
Proair Digihaler 90 mcg/actuation aero powdr breath act w/sensor
1 inh inhalation Q4H Qty: 1 0RF
prednisone 20 mg tablet
40 mg PO DAILY Qty: 8 0RF
albuterol sulfate 2.5 mg /3 mL (0.083 %) solution for nebulization
2.5 mg inhalation Q4H Qty: 75 0RF
albuterol sulfate [ProAir HFA] 90 mcg/actuation HFA aerosol inhaler
1 puff inhalation Q4HPRN PRN (Reason: shortness of breath) Qty: 6.7 0RF
Referrals:
UNKNOWN - PT NOT,INTERVIEWE [Family Provider] -
Activity Restrictions/Additional Instructions:
Please restart the Keppra as we have prescribed. Follow-up with your primary care physician for further refills.
Interventions
Interventions:
*Risk Screen - Suicide Last Done: 11/16/24 13:04
*Neglect/Abuse Screening Last Done: 11/16/24 13:04
*ED- Fall Risk Assessment Last Done: 11/16/24 13:04
*ED COVID-19 Vaccine History Last Done: 11/16/24 13:04
ED- Cardiac Assessment Last Done: 11/16/24 13:05
ED- Neurological Assessment Last Done: 11/16/24 13:05
ED- Pulmonary Assessment Last Done: 11/16/24 13:05
Discharge Date and Time
Print Language: NEPALI
[2024-11-16 15:16] LABS: Methamphetamines Positive (Negative)
[2024-11-16 15:17] LABS: Amphetamines Positive (Negative); Barbiturates Negative (Negative); Benzodiazepines Negative (Negative); Buprenorphine Negative (Negative); Cocaine Negative (Negative); Marijuana Positive (Negative); Methadone Negative (Negative); Opiates Negative (Negative); Phencyclidine Negative (Negative); Tricyclic Antidepressants Negative (Negative)
[2024-11-16 15:37] LABS: Urine Bacteria Few (Negative); Urine Mucus Many; Urine Red Blood Cell 0-2 /HPF (0-2); Urine Squamous Cell >30 /LPF (Few)
[2024-11-16 15:47] LABS: Fentanyl, Urine Negative (Negative)
== END 2024-11-16 15:35 | disposition home or self-care (01) ==
LOC: EMR 10:59
PROVIDERS: EMERGENCY PHYSICIAN Emergency Medicine
DX: G40.909 Epilepsy, unspecified, not intractable, without status epilepticus (principal); F17.200 Nicotine dependence, unspecified, uncomplicated
CPT/HCPCS: 99285; 70450; 80053; 80306; 80307; 81003; 81015; 82077; 82550; 83605; 83690; 85025; 93005

== ENCOUNTER 2024-12-11 12:36 | Emergency (ER) | payer MEDICARE, OTHER, SELFPAY ==
[2024-12-11 12:37] VITALS: BMI 17.1
[2024-12-11 12:38] VITALS: BP 140/94
[2024-12-11] MEDS: NSS 1000 IV (12:51)
[2024-12-11 13:00] VITALS: BP 137/79
[2024-12-11] MEDS: KEPPRA 1000 MG IV (13:01)
[2024-12-11 13:03] LABS: % Basophils 0.2 % (0-2); % Immature Granulocytes 0.3 % (0-0.5); % Lymphocytes 22.2 % (20.5-51.1); % Monocytes 7.2 % (1.7-9.3); % Neutrophils 70.1 % (42.2-75.2); Absolute Lymphocytes 2.1 10^3/uL (1.2-3.4); Absolute Monocytes 0.7 10^3/uL (0.1-0.6); Absolute Neutrophils 6.8 10^3/uL (1.4-6.5); Hematocrit 45.1 % (37.0-47.0); Hemoglobin 15.8 g/dL (12.0-16.0); Mean Corpuscular Hgb 31.8 pg (27.0-31.0); Mean Corpuscular Volume 90.7 fL (81.0-99.0); Mean Platelet Volume 9.7 fL (7.4-10.4); Nucleated Red Blood Cells % 0 %; Platelet Count 202 10^3/uL (130-400); Red Blood Cell Count 4.97 10^6/uL (4.20-5.40); Red Cell Dist. Width 14.4 % (11.5-14.5); White Blood Cell Count 9.6 10^3/uL (4.8-10.8)
[2024-12-11 13:15] LABS: ALT (SGPT) 18 U/L (0-35); AST (SGOT) 27 U/L (14-36); Alkaline Phosphatase 102 U/L (38-126); Blood Urea Nitrogen 15 mg/dl (7-17); Calcium 10.5 mg/dl (8.4-10.2); Carbon Dioxide 26 mmol/L (22-30); Chloride 102 mmol/L (98-107); Creatine Phosphokinase 59 U/L (30-135); Estimated Creatinine Clearance 61 ml/min; Glucose 109 mg/dl (70-99); Magnesium 1.9 mg/dl (1.6-2.3); Potassium 4.6 mmol/L (3.5-5.1); Sodium 140 mmol/L (135-145); Total Bilirubin 0.9 mg/dl (0.2-1.3); Total Protein 8.3 g/dl (6.3-8.2); eGFR > 60.00
[2024-12-11 13:18] LABS: Alcohol None Detected
[2024-12-11] MEDS: KEPPRA 2000 MG IV (13:19)
--- NOTE | 2024-12-11 13:39 | ED.GENMED ---
History of Present Illness
General
Chief Complaint: Seizure
Source: patient, records and ambulance crew
Time Seen by Provider: 12/11/24 12:39
History of Present Illness
History of Present Illness:
44-year-old female with past medical history of seizure disorder, bipolar disorder, PTSD and ADD presenting to the emergency department for evaluation with EMS after she reportedly had multiple seizures earlier in the day today, she was at work at
time of these events, staff called EMS who administered 5 mg Versed IM with resolution of the seizure. Patient recently seen at this ER earlier this month for the same and was prescribed 500 mg of Keppra to take twice daily which she does report
taking but notes that she had been on 1000 mg in the past and was reportedly telling staff today that she felt she is not on enough Keppra. She notes that she has not had a breakthrough seizure since being seen in the ER earlier this month. Denies
any fevers, chills, rigors. Denies any recent alcohol use but does note continued marijuana use. Patient denies any headaches, visual changes, focal weakness, abdominal pain, nausea, vomiting or any other concerns.
Past History
Past History
ED Past Medical History: Asthma, Seizures, Psychiatric (Bipolar Disorder, PTSD) and Other (endometriosis, )
ED Past Surgical History: ( X 3) and Gynecological (Tubal)
Patient has exhibited threatening behavior?: No
Social History
Tobacco: Smoker
Alcohol: None
Drug: None and Marijuana
Personal:
Living: with family
Review of Systems
Review of Systems
All Other Systems: ROS reviewed and negative except as documented in HPI and ROS
Phy Exam
Physical Exam
Physical Exam:
GENERAL: Sleepy but answers questions appropriately, somewhat garbled speech, in no apparent distress
HEAD: Normocephalic atraumatic
EYE: pupils equal and reactive, 4 mm bilateral, EOMI
NECK: Supple, no significant adenopathy.
ENT: o/p clr, mmm. No tongue laceration
CARDIAC: Regular rate and rhythm .
LUNGS: Clear breath sounds bilaterally, no acute respiratory distress, no wheezes/rales/rhonchi
ABDOMEN: Soft, without focal tenderness, no r/g, no cvat
NEUROLOGICAL: Alert and oriented, no focal neuro deficits
SKIN: Warm and dry, skin intact.
MUSCULOSKELETAL: well perfused.
PSYCH: Normal and appropriate interaction.
Scores
Heart Failure Risk
Heart Failure Risk Score: Not Applicable
Heart Score for Chest Pain Patients
STEMI patient?: Not applicable
Withdrawal Assessment of Alcohol
Withdrawal Assessment Completed?: Not applicable
Course
Orders/Labs/Results
Orders:
Orders
12/11/24 12:46
Electrocardiogram (*1) Urgent
Reason for Study: Other
Other Reason for Exam: seizure
0.9% Sodium Chloride 1000 ml [Nss] 1,000 ml IV BOLUS
12/11/24 12:47
EKG- Treatment ONCE
12/11/24 12:48
Alcohol Urgent
CPK [Creatine Phosphokinase] Urgent
Complete Blood Count/With Diff Urgent
Comprehensive Metabolic Panel Urgent
Keppra (Levetiracetam) [S] Urgent
Magnesium Urgent
TSH Urgent
12/11/24 13:00
Levetiracetam Injectable [Keppra] 1,000 mg IV NOW STA
12/11/24 13:14
EEG Routine Urgent
Reason for Exam: breakthrough seizures
Levetiracetam Injectable [Keppra] 2,000 mg IV NOW STA
Abnormal Lab Results
12/11/24
12:48
MCH 31.8 H pg
(27.0-31.0)
Absolute Neuts (auto) 6.8 H 10^3/uL
(1.4-6.5)
Absolute Monos (auto) 0.7 H 10^3/uL
(0.1-0.6)
Glucose 109 H mg/dl
(70-99)
Calcium 10.5 H mg/dl
(8.4-10.2)
Total Protein 8.3 H g/dl
(6.3-8.2)
12/11/24 12:48
12/11/24 12:48
Vital Signs
Initial and Last Documented VS:
Initial Vital Signs
Temp Pulse Resp BP Pulse Ox
97.5 F 86 16 140/94 95
12/11/24 12:38 12/11/24 12:38 12/11/24 12:38 12/11/24 12:38 12/11/24 12:38
Last Documented Vital Signs
Temp Pulse Resp BP Pulse Ox
97.5 F 72 16 126/81 100
12/11/24 12:38 12/11/24 14:00 12/11/24 14:03 12/11/24 14:00 12/11/24 14:00
MDM/Problems Addressed
Differential Diagnosis Includes:
Breakthrough seizure, substance abuse/withdrawal, given recent CT scan I have no concern for intracranial bleeding or malignancy, electrolyte derangement
MDM/Problems Addressed:
44-year-old female presenting to the emergency department for evaluation after she reportedly had breakthrough seizure earlier today at work, patient believes she may have had multiple seizures today. She does admit to taking the Keppra as
prescribed, 500 mg twice daily. Presently without any complaints but still appears postictal. On record review patient did have marijuana and amphetamines in her system, there is a history of ADD but it was unclear as to if patient is medicated.
Will check labs, treat with 1 g of Keppra IV, IV fluids and consult with neurology given this is patient's second visit this month for seizure. Disposition pending
Chronic conditions affecting care: Neurological disorder
Acute Exacerbation and/or Progression of Chronic Illness: Neurological disorder
*Pulse Oximetry
Patient hypoxic: no
*EKG
Heart Rate: 79
Rate: normal
Rhythm: sinus
Ischemia: no ischemia
*Top Waddy Interpretation
Rate: normal
Rhythm: sinus
*Critical Care Note
Total Time (30-74mins, 75-104mins- exclusive of procedures): Not Applicable
Data Reviewed
Review of Other/Old Records Reveals: Labs, Records and Radiology Studies
Patient Management
Discussion with other providers: Welfare Visitor
Escalation/DeEscalation of care consider admission/obs:
Case discussed with neurology who will arrange for patient to have an EEG done in the ER, if this is unremarkable and patient has no further seizure episodes patient can be safely discharged home with increased Dose. Patient tolerated the EEG
without any difficulty, per neurology patient is okay to be discharged home. She was given a new prescription for Keppra 1000 mg twice daily. Encourage close follow-up with primary care and neurology. Otherwise stable for discharge home and aware
of return precautions.
ED Attending Note
-
Portions of this chart may have been created with voice recognition software.� Occasional wrong word or��sound alike� substitutions may have occurred due to the inherent limitations of voice recognition software.
Discharge Plan
Departure
Patient Disposition: Home (Routine Discharge)
Date of Disposition: 12/11/24
Time of Disposition: 14:53
Patient with high blood pressure during this ER visit?: No
Discharge Problem:
Seizure
Instructions: Seizures, Adult (DC)
Prescriptions:
New
levetiracetam [Keppra] 500 mg tablet
1,000 mg PO BID 30 Days Qty: 120 0RF
No Action
Proair Digihaler 90 mcg/actuation aero powdr breath act w/sensor
1 inh inhalation Q4H Qty: 1 0RF
prednisone 20 mg tablet
40 mg PO DAILY Qty: 8 0RF
albuterol sulfate 2.5 mg /3 mL (0.083 %) solution for nebulization
2.5 mg inhalation Q4H Qty: 75 0RF
albuterol sulfate [ProAir HFA] 90 mcg/actuation HFA aerosol inhaler
1 puff inhalation Q4HPRN PRN (Reason: shortness of breath) Qty: 6.7 0RF
levetiracetam 500 mg tablet
500 mg PO BID Qty: 60 0RF
Referrals:
UNKNOWN,NO INTERVIEW [Family Provider] -
Interventions
Interventions:
*Risk Screen - Suicide Last Done: 12/11/24 12:45
*General Assessment Last Done: 12/11/24 12:38
*Neglect/Abuse Screening Last Done: 12/11/24 12:45
*ED- Fall Risk Assessment Last Done: 12/11/24 12:38
*ED COVID-19 Vaccine History Last Done: 12/11/24 12:38
*Nursing Disposition Last Done: 12/11/24 14:45
ED- Cardiac Assessment Last Done: 12/11/24 12:49
ED- Neurological Assessment Last Done: 12/11/24 12:49
ED- Pulmonary Assessment Last Done: 12/11/24 12:49
Discharge Date and Time
Discharge Date/Time: 12/11/24 15:07
Print Language: STATELESS
[2024-12-11 13:58] LABS: TSH 2.68 uIU/ml (0.47-4.68)
[2024-12-11 14:00] VITALS: BP 126/81
--- NOTE | 2024-12-11 14:37 | EEG.RPT ---
Electroencephalogram Report
Recording
Date of EE12/11/24
Type of EEG: Routine
Length of EEG recordin minutes
Done with Video Recording: Yes
Patient Status: Emergency Room
Recording Conditions: Awake and Drowsy
Hyperventilation Performed: No
Photic Stimulation Performed: Yes
Report
LESS THAN 1 HOUR EEG INTERPRETATION:
Unremarkable EEG for age
CLINICAL CORRELATION:
A normal EEG does not rule out a diagnosis of epilepsy. If clinical suspicion for seizure persists, a prolonged recording may be warranted.
Clinical correlation is advised.
METHODS:
A 21 channel digitized electroencephalogram (EEG) was performed using the 10/20 international system of electrode placement and one-lead of ECG recorded. The [employer] quantitative EEG system was utilized.
ELECTROENCEPHALOGRAPHER IMPRESSION(S):
Quality of study
Good, limited mildly by muscle artifact
Background
There was an unremarkable anterior-posterior voltage gradient of alpha frequency.
With eye opening the background activity changed to a low voltage mixture of frequencies.
There were no significant asymmetries of background activity noted.
Sleep
Drowsiness present
Photic Stimulation
No activation
ECG
Normal sinus rhythm
[2024-12-13 20:48] LABS: Keppra (Levetiracetam) 17 ug/mL (10-40)
== END 2024-12-11 15:07 | disposition home or self-care (01) ==
LOC: EMR 12:36
PROVIDERS: Physician Assistant Medical; EMERGENCY PHYSICIAN Emergency Medicine
DX: G40.909 Epilepsy, unspecified, not intractable, without status epilepticus (principal); J45.909 Unspecified asthma, uncomplicated; F98.8 Other specified behavioral and emotional disorders with onset usually occurring in childhood and adolescence; R78.4 Finding of other drugs of addictive potential in blood; F17.200 Nicotine dependence, unspecified, uncomplicated; Z79.899 Other long term (current) drug therapy
CPT/HCPCS: 96374; 96361; 99284; 80053; 80177; 82077; 82550; 83735; 84443; 85025; 93005; 95816

== ENCOUNTER 2025-01-05 19:59 | Emergency (ER) | payer MEDICARE, OTHER, SELFPAY ==
[2025-01-05 20:03] VITALS: BP 123/79; BMI 17.3
[2025-01-05 21:11] LABS: HCG, Serum Qualitative Screen Negative
[2025-01-05 21:15] LABS: Alcohol 13 mg/dl; Blood Urea Nitrogen 20 mg/dl (7-17); Calcium 9.6 mg/dl (8.4-10.2); Carbon Dioxide 23 mmol/L (22-30); Chloride 108 mmol/L (98-107); Estimated Creatinine Clearance 64 ml/min; Glucose 91 mg/dl (70-99); Potassium 4.5 mmol/L (3.5-5.1); Sodium 140 mmol/L (135-145); eGFR > 60.00
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
[2025-01-05 21:31] LABS: % Basophils 0.3 % (0-2); % Eosinophils 2.5 % (0-6); % Immature Granulocytes 0.1 % (0-0.5); % Lymphocytes 29.5 % (20.5-51.1); % Monocytes 6.2 % (1.7-9.3); % Neutrophils 61.4 % (42.2-75.2); Absolute Eosinophils 0.2 10^3/uL (0-0.7); Absolute Monocytes 0.4 10^3/uL (0.1-0.6); Absolute Neutrophils 4.3 10^3/uL (1.4-6.5); Hematocrit 40.2 % (37.0-47.0); Mean Corp Hgb Conc. 34.8 g/dL (33.0-37.0); Mean Corpuscular Hgb 31.5 pg (27.0-31.0); Mean Corpuscular Volume 90.3 fL (81.0-99.0); Mean Platelet Volume 10.4 fL (7.4-10.4); Nucleated Red Blood Cells % 0 %; Platelet Count 186 10^3/uL (130-400); Red Blood Cell Count 4.45 10^6/uL (4.20-5.40); Red Cell Dist. Width 14.1 % (11.5-14.5); White Blood Cell Count 6.9 10^3/uL (4.8-10.8)
--- NOTE | 2025-01-05 22:24 | EDRN ---
Pt. extremely agitated, continuously attempting to place paper scrub shirt around her neck, one to one and RN continuously attempting to redirect pt., but pt. is not receptive to teaching. This RN informed Dr. Noel that pt. continuously trying to
hurt herself, despite consistent redirection. Order for bilateral wrist restraints obtained, soft bilater wrist restraints applied. One to one remains at bedside. Pt. is tearful, RN explained restraints are because pt. refuses to stop attempting to
harm herself, pt. states 'just stab me with a knife then'.
--- NOTE | 2025-01-05 22:41 | EDRN ---
Shortly after soft limb restraints were placed to bilateral upper extremities, pt. continuously managed to wiggle out of restraints, was continuously trying to put her head in between rales of stretcher, pushing her neck against the metal rail.
Security called to bedside, Dr. Noel to bedside, pt. placed instead in bilateral locked restraints, now unable to wiggle out her hands, now unable to continue to attempt to hurt herself. Pt. remains a danger to herself.
[2025-01-05 22:43] VITALS: BP 135/86
[2025-01-05] MEDS: HALDOL 5 MG IM (23:53)
[2025-01-05] MEDS: ATIVAN 2 MG IM (23:53)
[2025-01-06 00:57] VITALS: BP 91/59
[2025-01-06 05:19] LABS: Amphetamines Positive (Negative); Benzodiazepines Positive (Negative)
[2025-01-06 05:20] LABS: Barbiturates Negative (Negative); Buprenorphine Negative (Negative); Cocaine Negative (Negative); Marijuana Positive (Negative); Methadone Negative (Negative); Methamphetamines Positive (Negative); Opiates Negative (Negative); Phencyclidine Negative (Negative); Tricyclic Antidepressants Negative (Negative)
[2025-01-06 05:40] LABS: Fentanyl, Urine Negative (Negative)
[2025-01-06 08:00] VITALS: BP 99/59
[2025-01-06 15:17] VITALS: BP 104/55
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
== END 2025-01-06 21:54 ==
LOC: EMR 19:59
PROVIDERS: Emergency Medicine; CONSULT PHYSICIAN Psychiatry & Neurology Psychiatry; EMERGENCY PHYSICIAN Student in an Organized Health Care Education/Training Program
DX: T14.91XA Suicide attempt, initial encounter (principal); X83.8XXA Intentional self-harm by other specified means, initial encounter; F10.90 Alcohol use, unspecified, uncomplicated; F12.90 Cannabis use, unspecified, uncomplicated; F43.10 Post-traumatic stress disorder, unspecified; F31.9 Bipolar disorder, unspecified; J45.909 Unspecified asthma, uncomplicated; R56.9 Unspecified convulsions; F17.200 Nicotine dependence, unspecified, uncomplicated; Z88.6 Allergy status to analgesic agent; Z88.8 Allergy status to other drugs, medicaments and biological substances; F10.129 Alcohol abuse with intoxication, unspecified
CPT/HCPCS: 99285; 96372 ×2; 80048; 80306; 80307; 82077; 84703; 85025